=== PATIENT | female | born 1975 | race Caucasian/White ===

== ENCOUNTER 2016-09-23 05:48 | Day surgery (SDC) | payer OTHER ==
[~2016-09-23] VITALS: Ht 162.6 cm; Wt 87.8 kg
[~2016-09-23 05:48] MED LIST: HYDR-4003 PO; OMEP20CA11 PO; SERT25TA2 PO; amitriptyline
[2016-09-23] MEDS ORDERED: fentaNYL-PF 50 mCg/mL 2 mL Inj ONE (05:49)
[2016-09-23] MEDS ORDERED: Ondansetron 2 mg/mL 2 mL Inj ONE (05:49)
[2016-09-23] MEDS ORDERED: Propofol 10,000 mCg/mL 20 mL Inj ONE (05:49)
[2016-09-23] MEDS: Lactated Ringer's 1,000 ML IV SCH ×2 (06:22→07:23)
[2016-09-23 06:31] VITALS: BP 90/63; PULSE 64; RESP 16; O2SAT 99
--- NOTE | 2016-09-23 07:05 | PCM.HPANE ---
Patient Data Surgeon Admitting Provider: Attending Provider:Brianna Frost MD Primary Care Physician:Maci Roche MD Other Provider:Gómez Espinoza Anesthesia Reason for Visit Back & Right Thigh Subcutaneous Masses Ht/WT & BMI Height (Feet): 5 Height (Inches): 4 Weight (Kilograms): 87.8 Body Mass Index 33.00 Allergies Coded Allergies: Adhesives (Verified Allergy, Unknown, rash, 09/17/16) Sulfa (Sulfonamide Antibiotics) (Verified Allergy, Unknown, rash, 09/17/16) Past Anesthesia History Anesthesia History: Denies:: Anesthesia Reactions Diabetes History Hx Diabetes?: No Medications Home Meds Incl Beta Len: No Reported Medications Omeprazole 20 Mg Capsule.dr20 Mg PO BID Ref 0 09/17/16 Sertraline HCl (Zoloft)25 Mg [id number] Mg PO DAILY 30 Days Ref 0 09/17/16 [amitriptyline] No Conflict CheckUnknown Dose HS 09/17/16 Discontinued Reported Medications Hydrocodone-Acetaminophen 5-325 mg 1 Each Tablet1 Tablet PO Q6H PRN For Pain Ref 0 09/17/16 History History of ENT Problems?: Yes HEENT History: Positive for:: Dysphagia (solid foods- being eval by GI) Denies:: Hearing Problem Denture Type: None Teeth Condition: Within Normal Limits Hx of Heart Problems?: No Cardiovascular History: Denies:: Chest Pain Hypertension Irregular Heartbeat Hx of Respiratory Problem?: Yes Respiratory History: Positive for:: Asthma Denies:: Oxygen Administration Use of C-PAP Machine Hx Neurologic Problems?: Yes Neurological History: Positive for:: Headaches (migraine hx) Hx of GI Problems?: Yes Other GI Pertinent History: hx of vertical banding 2013- Hx of Problems?: No Female Hx: Denies:: Currently Skin History: Positive for:: History Skin Disorders? (back, right thigh lipomas current admission problem) Hx Musculoskeletal Problems?: Yes Musculoskeletal History: Positive for:: Musculoskeletal Trauma (right foot sprain- currently in walking boot) Hx of Psycho/Social Problems?: Yes Psycho Social History: Positive for:: Hx Depression Denies:: Anxiety Hx Surgeries?: Yes (sleeve gastrectomy, ovarian cyst, c section, exc lipomas) Hx Any Other Health Problems?: Yes Other History: Denies:: Cancer Thyroid Disease Hx Diabetes: No Hx Alcohol Use: YesAlcoholic Drinks Per Day: 1-2 drinks weeklyHx Substance Use : NoHave You Smoked inLast 12 mo: No Stop/Bang S-Snoring: Do You Snore Loudly: No T-Tired: feel tired, fatigued: Yes O-Obsered: Observed not breath: No P-Blood Pressure: treated: No B- Body Mass Index > 35 kg/m2: No A- Age over 50: No N- Neck Large Circumference: No G- Gender Male: No ANDREIA Total Score: 1 ANDREIA Risk Assessment: Low Risk, <3 Yes Risk Assessment Category Category 1A: Patient has history of documented sleep apnea, and HAS NOT received any narcotic, sedative or anesthesia administration during this stay. Category 1B: Patient has history of documented sleep apnea, and HAS received any narcotic , sedative or anesthesia administration during this stay Category 2: Patient has SUSPECTED Obstructive Sleep Apnea, and HAS received any narcotic , sedative or anesthesia administration during this stay. Category 3: Patient has SUSPECTED Obstructive Sleep Apnea and HAS NOT received narcotic, sedative or anesthesia administration during this stay. Category 4: Outpatient in Procedural Areas with known sleep apnea or who screen positive for High Risk via the STOP/BANG questionnaire. Exam Exam Vital Signs Vital Signs Date Time Temp Pulse Resp B/P Pulse Ox O2 Delivery O2 Flow Rate FiO2 09/23/16 06:31 36 64 16 90/63 99 Room Air General Appearance: Alert, Oriented X3, Cooperative, No Acute Distress HEENT/AIRWAY: MP 1 Lungs: Normal Air Movement Heart: Exam Unremarkable Meds/Labs/Diagnostics Admission Meds Current Medications Lactated Ringer's (Lr) 1,000 ml @ 120 mls/hr Q8H20M IV Last administered on t 06:22; Start 09/23/16 at 05:00; Stop 09/23/16 at 13:19 Plan Impression Patient chart reviewed, patient interviewed and anesthestic plan with risks, benefits, and alternatives discussed, and informed consent obtained. ASA Physical Status: ASA2 Mod Systemic Disease Anesthetic Plan: MAC Bene/Risks/Altern/Consents: Yes HP Complete Prior to Induction: Yes Fran Jesus MD September 23, 2016 07:05
[2016-09-23] MEDS ORDERED: Lactated Ringer's 500 ML IV PRN (07:38)
[2016-09-23] MEDS ORDERED: Lactated Ringer's 1,000 ML IV SCH (07:38)
[2016-09-23] MEDS ORDERED: Dexamethasone 4 mg/mL Inj IVPUSH PRN (07:40)
[2016-09-23] MEDS ORDERED: Ondansetron 2 mg/mL 2 mL Inj IVPUSH PRN (07:40)
[2016-09-23] MEDS ORDERED: MetoCLOpramide 5 mg/mL 2 mL Inj IVPUSH PRN (07:40)
[2016-09-23] MEDS ORDERED: EPHEDrine Sulfate 50 mg/mL Inj IVPUSH PRN (07:40)
[2016-09-23] MEDS ORDERED: HYDROmorphone 1 mg/mL Inj IVPUSH PRN (07:40)
[2016-09-23] MEDS ORDERED: Albuterol-Ipratropium 3 mL Inhalation Solution NEB PRN (07:40)
[2016-09-23] MEDS ORDERED: fentaNYL-PF 50 mCg/mL 2 mL Inj IVPUSH PRN (07:40)
[2016-09-23] MEDS ORDERED: Phenylephrine 10,000 mCg/mL Inj IVPUSH PRN (07:40)
[2016-09-23] MEDS ORDERED: Bupivacaine-MPF 0.5% 30 mL Inj INFILTRATE ONE (07:41)
[2016-09-23 08:40] VITALS: BP 91/55; PULSE 67; RESP 18; O2SAT 96
[2016-09-23] MEDS ORDERED: HYDR-4003 PO (08:44)
--- NOTE | 2016-09-23 08:49 | PCM.SURGPO ---
Immediate Operative Note Date of Surgery: September 23, 2016 Pre Operative Diagnosis Subcutaneous masses on Right thigh and flank Post Operative Diagnosis Subcutaneous masses of the right thigh and flank Procedure Resection of subcutaneous masses of the right thigh and flank Surgeon and Aquatics Director Surgeon: Brianna Frost MD Assistants: None Findings Grossly consistent with lipomas Complications There were no periprocedural complications identified. Surgical Specimen Removed: Yes Specimen sent to Pathology: Yes Surgical Specimen description: 1. Right Thigh masses 2cm each X2 2. Right Flank Masses 3cm each X2 Anesthetic Administered: MAC Grafts, Implants: None Output, Estimated Blood Loss: 0 Blood Admin during surgery: No Brianna Frost MD September 23, 2016 08:49
--- NOTE | 2016-09-23 09:01 | PCM.ANEP1 ---
Post Anesthesia Phase 1 PACU Phase 1 Assessment Date of Service: September 23, 2016 Vital Signs Vital Signs Date Time Temp Pulse Resp B/P Pulse Ox O2 Delivery O2 Flow Rate FiO2 09/23/16 08:40 36.3 67 18 91/55 96 Room Air 09/23/16 06:31 36 64 16 90/63 99 Room Air Anesthetic Administered: GA Level of Alertness: Awake, talking TERESA's with Equal Strength: Yes Pain: No Nausea or Vomiting: No Cardiovascular Function and Hy: Yes Oxygen Delivery: Room Air Lungs: Normal Air Movement Complications: No Follow up Care: No Fran Jesus MD September 23, 2016 09:01
[2016-09-23 09:03] VITALS: BP 92/28; PULSE 70; RESP 18; O2SAT 99
--- NOTE | 2016-09-23 09:35 | OP ---
[address] [address] OPERATIVE REPORT PATIENT: LATRICE ELIZALDE : 1975 MR#: [id number] ADMIT: 09/23/2016 JOB ID: [id number] DATE OF SURGERY: 09/23/2016 SURGEON: Brianna Frost MD PREOPERATIVE DIAGNOSIS(ES): Subcutaneous masses of the right thigh and flank. POSTOPERATIVE DIAGNOSIS(ES): Subcutaneous masses of the right thigh and flank. PROCEDURE PERFORMED: Excision of subcutaneous mass of the right thigh and flank. DIRECTOR OF STRATEGY & MOBILE: None. COMPLICATIONS: None. CONDITION OF PATIENT: Stable. INDICATIONS: The patient is a 39-year-old lady who came to me in August with masses that she noticed on the right thigh and flank getting more painful. They are clinically consistent with lipomas. She has had lipomas removed in the past. After discussing the risks, benefits, and alternatives, she is here today for excision of these masses. PROCEDURE DETAILS: I marked both areas in the preoperative area. The patient was taken to the operating room, underwent sedation, and was placed in a left lateral decubitus position and the right thigh and flank were prepped and draped in the usual sterile fashion. Surgical time-out was undertaken using safety checklist, and all were in agreement. I first made an incision over the right thigh and divided the skin sharply and identified 2 fatty subcutaneous masses measuring 2 cm each consistent with lipomas. I sent them out to pathology. Ensured good hemostasis. I then directed my attention to the right flank where I made a 4-5 cm incision and again divided the skin sharply and identified a 3 cm fatty mass anterosuperiorly and another 3 cm fatty mass posterior inferiorly. Excised both these intact, ensured hemostasis, and closed both incisions in layers of 3-0 Vicryl followed by 4-0 Monocryl. Dermabond was applied as a dressing. She was recovered from sedation and was taken to the recovery area in stable condition.
--- NOTE | 2016-09-25 16:16 | PATH ---
SURGICAL PATHOLOGY Attending Physician:Brianna Frost MD CASE STATUS: Signed Out PATIENT NAME: LATRICE ELIZALDE PID: [id number] : 1975 DATE COLLECTED:09/23/2016 20:48 SPECIMEN: 1: Soft Tissue Mass, Biopsy 2: Soft Tissue Mass, Biopsy CLINICAL HISTORY: SUBCUTANEOUS MASSES 1). RIGHT THIGH MASSES 2). RIGHT FLANK MASSES FINAL DIAGNOSIS: 1. Right Thigh Mass, Excision (Aggregate Measurement 2.5 x 2.0 x 1.2 cm): Portions of mature fibroadipose tissue, consistent with lipoma. 2. Right Flank Masses, Excision (Aggregate Measurement 3.2 x 3.0 x 1.2 cm): Portions of mature fibroadipose tissue, consistent with lipoma. ICD10: D17.9 GROSS DESCRIPTION: The specimen is received in two formalin filled containers labeled with the patient's name. 1). The specimen is sublabeled "right thigh mass" and consists of 5 light yellow portions of adipose tissue which aggregate to 2.5 x 2.0 x 1.2 CM. The specimen is inked blue. 3 representative personal service sections are submitted in cassette 1A. 2). The specimen is sublabeled "right flank mass" and consists of 3 yellow-wheatley portions of adipose tissue which aggregate to 3.2 x 3.0 x 1.2 CM. The specimen is inked blue. 2 representative personal service sections are submitted in cassette 2A. 09/23/2016 [facility] ICD-9 CODES: CPT CODES: 93051, 89762 Electronically Signed Out Tere Fuentes MD [facility] [address], [place] [address] Technical component performed at [facility], [facility] [address], [place], [address]
== END 2016-09-23 23:59 | disposition home or self-care (01) ==
LOC: SAS 05:48
PROVIDERS: ATTEND Student in an Organized Health Care Education/Training Program
PROC: 0JB70ZZ Excision of Back Subcutaneous Tissue and Fascia, Open Approach (ICD-10-PCS; 2016-09-23)
PROC: 0JBL0ZZ Excision of Right Upper Leg Subcutaneous Tissue and Fascia, Open Approach (ICD-10-PCS; principal; 2016-09-23 07:30)
DX: R22.2 Localized swelling, mass and lump, trunk (principal); R22.31 Localized swelling, mass and lump, right upper limb; J45.909 Unspecified asthma, uncomplicated
CPT/HCPCS: 11404; 11406; J1885; J2250; J2405; J3010; J7120

== ENCOUNTER 2016-10-04 00:25 | Day surgery (SDC) | payer OTHER ==
[~2016-10-04] VITALS: Ht 162.6 cm; Wt 86.6 kg
[~2016-10-04 00:25] MED LIST changes: -amitriptyline
[2016-10-04] MEDS ORDERED: fentaNYL-PF 50 mCg/mL 2 mL Inj IVPUSH PRN (06:00)
[2016-10-04] MEDS ORDERED: Sodium Chloride LOK Flush 10 mL Syringe IV PRN (06:00)
[2016-10-04] MEDS ORDERED: 0.9% Sodium Chloride 1,000 ML IV SCH (06:00)
[2016-10-04 14:21] VITALS: BP 87/54; PULSE 76; RESP 14; O2SAT 100
[2016-10-04] MEDS ORDERED: AMIT10TA6 PO (14:23)
[2016-10-04 15:50] VITALS: BP 101/64; PULSE 77; RESP 16; O2SAT 98
[2016-10-04 16:00] VITALS: BP 104/69; PULSE 77; RESP 16; O2SAT 98
[2016-10-04 16:10] VITALS: BP 102/68; PULSE 70; RESP 16; O2SAT 100
--- NOTE | 2016-10-05 07:54 | ENDO ---
[address] [address] ENDOSCOPY PROCEDURE PATIENT: LATRICE ELIZALDE : 1975 MR#: [id number] ADMIT: 10/04/2016 JOB ID: [id number] DATE OF SERVICE: 10/04/2016 PROCEDURE PERFORMED: Esophagogastroduodenoscopy. INDICATION: Gastroesophageal reflux. ASA CLASSIFICATION: The patient's ASA classification is II. MALLAMPATI SCORE: Mallampati score is 2. MEDICATIONS: 1. Versed 6 mg. 2. Fentanyl 125 mcg. INSTRUMENT USED: GIF-H190. PROCEDURE DETAILS: After informed consent was obtained, the patient was brought into the GI suite, where he was placed on oxygen via nasal cannula and monitored with continuous pulse oximeter, telemetry, and blood pressure monitoring. A time-out was performed. Then, he was placed in the left lateral decubitus position, and medications were administered for sedation. A bite was placed. A standard EGD scope was then inserted through the bite block and advanced under direct visualization to the second portion of the duodenum without difficulty. FINDINGS: 1. Normal appearing duodenal bulb, first and second portions. 2. Normal appearing pylorus. In the antrum there were linear superficial erosions. Multiple biopsies were obtained. 3. The remainder of the gastric exam aside from surgical changes consistent with the patient's history of gastrectomy for bypass surgery was otherwise unremarkable. Multiple random biopsies were obtained in the body of the stomach. 4. Retroflexed views in the gastric body revealed normal appearing cardia and fundus. 5. The GE junction was regular at 38 cm. 6. There was some mild erythema of the distal esophagus suggestive of mild esophagitis. IMPRESSION: 1. Linear superficial erosions in the antrum. 2. Surgical changes consistent with the patient's history of partial gastrectomy. RECOMMENDATIONS: 1. Recommend MiraLAX daily and continue PPI. 2. Follow up in GI clinic. COMPLICATIONS: None. ESTIMATED BLOOD LOSS: Less than 5 mL.
--- NOTE | 2016-10-07 15:41 | PATH ---
SURGICAL PATHOLOGY Attending Physician:Yamileth Leggett CASE STATUS: Signed Out PATIENT NAME: LATRICE ELIZALDE PID: [id number] : 1975 DATE COLLECTED:10/04/2016 00:00 SPECIMEN: 1: Stomach, Antrum, Biopsy 2: Gastric, Biopsy CLINICAL HISTORY: 1). GASTRIC ANTRUM 2). RANDOM GASTRIC FINAL DIAGNOSIS: 1.BIOPSIES, GASTRIC ANTRUM: MILD TO MODERATE CHRONIC GASTRITIS, FOCALLY ACTIVE, INVOLVING ANTRAL MUCOSA. Immunohistochemistry for Helicobacter pending, to be reported by addendum. Negative for intestinal metaplasia. Negative for dysplasia and malignancy. 2.RANDOM GASTRIC BIOPSIES: FOCAL MINIMAL CHRONIC GASTRITIS INVOLVING FUNDIC MUCOSA. Negative for evidence of Helicobacter. Negative for intestinal metaplasia. Negative for dysplasia and malignancy. ICD10 K29.70 GROSS DESCRIPTION: The specimen is received in two formalin filled containers labeled with the patient's name. 1). The specimen is sublabeled "gastric antrum" and consists of 2 portions of tissue which aggregate to 0.2 x 0.2 x 0.2 CM. The specimen is entirely submitted in cassette 1A. 2). The specimen is sublabeled "random gastric" and consists of a 0.5 x 0.3 x 0.2 CM portion of tissue which is entirely submitted in cassette 2A. 10/05/2016 [facility] MICRO DESCRIPTION: See diagnosis. ICD-9 CODES: CPT CODES: 1: 35603, 31099 2: 14327, 91044 PROCEDURE/ADDENDA: Immunohistochemistry SPI Interpretation {Not Entered} Results-Comments The gastric mucosa (part 1) was stained with immunohistochemical stains using monoclonal antibody to Helicobacter pylori (SP48). Positive and negative controls stain appropriately. Result: The gastric mucosa shows no staining. Interpretation: The gastric mucosa is negative for Helicobacter pylori by immunohistochemical stains. This test was developed and its performance characteristics determined by [employer]. It has not been cleared or approved by the [place]. [place]. Food and Drug Administration. The FDA has determined that such clearance or approval is not necessary. This test is used for clinical purposes. It should not be regarded as investigational or for research. Electronically Signed Out Lois Bo MD Electronically Signed Out Oleg Nunez MD [facility] [address], [place] [address] Technical component performed at [facility], [address], [place], [address]
== END 2016-10-04 23:59 | disposition home or self-care (01) ==
LOC: END 00:25
PROVIDERS: ATTEND Internal Medicine Gastroenterology
DX: K29.50 Unspecified chronic gastritis without bleeding (principal); K21.9 Gastro-esophageal reflux disease without esophagitis; K20.9 Esophagitis, unspecified; Z90.3 Acquired absence of stomach [part of]
CPT/HCPCS: 43239; G0500; J7030